=== PATIENT | male | born 2000 | race African-American/Black ===

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

== ENCOUNTER 2021-03-12 20:40 | Emergency (ER) | payer MEDICAID, OTHER ==
[2021-03-12] MEDS ORDERED: Albuterol/Ipratropium 3.0-0.5 MG/3 ML Neb Soln NEB ONE ×2 (20:55→21:10)
[2021-03-12] MEDS ORDERED: methylPREDNISolone Sodium Succinate 125 MG/2 ML SDV IM ONE (20:55)
[2021-03-12] MEDS ORDERED: Take Home: Doxycycline 100 MG Tab, 4 Tab Pack PO ONE (21:37)
--- NOTE | 2021-03-12 21:53 | EDM.PDOC ---
ED HPI GENERAL MEDICAL PROBLEM - General Stated Complaint: HARD TIME BREATHING Time Seen by Provider: 03/12/21 20:40 Source of Information: Reports: Patient, RN, RN Notes Reviewed History Limitations: Reports: No Limitations - History of Present Illness INITIAL COMMENTS - FREE TEXT/NARRATIVE: Pt. presents to ER with complaints of cough, chest tightness, and wheezing for the past 2 days. Pt. has a history of asthma. He states that he started feeling poorly a couple of days ago. He states that his cough is productive of yellowish sputum. He has an albuterol inhaler and duoneb nebulizer which he used twice today. He denies any fever or chills. Denies any chest pain. Pt. states that he was hospitalized once for asthma as a child. He states that his asthma has improved since he has gotten older. He denies ever having to be intubated. Pt. is a smoker. He is also on singulair 10mg daily. He is not on ICS or LABA. Onset Date: 03/10/21 Location: Reports: Chest Associated Symptoms: Reports: Cough, cough w sputum, Shortness of Breath - Related Data Allergies Allergy/AdvReac Type Severity Reaction Status Date / Time seasonal Allergy Difficulty Uncoded 01/18/17 16:28 Breathing Home Meds: Home Meds Albuterol Sulfate [Proair Hfa] 8.5 gm IH 01/18/17 [History] Albuterol [IJP: Albuterol] 2.5 mg .XX 01/18/17 [History] Albuterol/Ipratropium [DuoNeb 3.0-0.5 MG/3 ML] 3 ml NEB Q4HRRT 01/18/17 [History] Cetirizine [ZyrTEC] 10 mg PO DAILY 01/18/17 [History] Cholecalciferol (Vitamin D3) [Vitamin D3] 1,000 units PO 01/18/17 [History] Escitalopram [Lexapro] 20 mg PO DAILY 01/18/17 [History] Fluticasone Propionate [24 Hour Allergy Relief] 15.8 ml NS 01/18/17 [History] Melatonin 3 mg PO BEDTIME 01/18/17 [History] Methylphenidate HCl [Concerta] 36 mg PO 01/18/17 [History] Montelukast [Singulair] 10 mg PO BEDTIME 01/18/17 [History] Past Medical History Respiratory History: Reports: Asthma ED ROS GENERAL - Review of Systems Review Of Systems: See Below Constitutional: Denies: Fever, Chills, Malaise, Weakness, Fatigue, Diaphoresis HEENT: Reports: No Symptoms Respiratory: Reports: Shortness of Breath, Wheezing, Cough Cardiovascular: Reports: No Symptoms Endocrine: Reports: No Symptoms GI/Abdominal: Reports: No Symptoms : Reports: No Symptoms Musculoskeletal: Reports: No Symptoms Skin: Reports: No Symptoms Neurological: Reports: No Symptoms Psychiatric: Reports: No Symptoms Hematologic/Lymphatic: Reports: No Symptoms Immunologic: Reports: No Symptoms ED EXAM, GENERAL - Physical Exam Exam: See Below Exam Limited By: No Limitations General Appearance: Alert, WD/WN, No Apparent Distress Nose: Normal Inspection, Normal Mucosa, No Blood Throat/Mouth: Normal Inspection, Normal Lips, Normal Teeth, Normal Oropharynx, No Airway Compromise Head: Atraumatic, Normocephalic Neck: Normal Inspection, Supple, Non-Tender, Full Range of Motion Respiratory/Chest: No Respiratory Distress, No Accessory Muscle Use, Chest Non- Tender, Decreased Breath Sounds, Wheezing, Other Cardiovascular: Normal Peripheral Pulses, Regular Rate, Rhythm, No Edema, No JVD, No Murmur, No Rub Peripheral Pulses: 4+: Radial (L) GI/Abdominal: Soft, Non-Tender, No Distention, No Mass (Male) Exam: Deferred Rectal (Males) Exam: Deferred Back Exam: Normal Inspection, Full Range of Motion Extremities: Normal Inspection, Normal Range of Motion, Non-Tender, No Pedal Edema, Normal Capillary Refill Neurological: Alert, Oriented, CN II-XII Intact, Normal Cognition, Normal Reflexes, No Motor/Sensory Deficits Psychiatric: Normal Affect, Normal Mood Skin Exam: Warm, Dry, Intact, Normal Color, No Rash Lymphatic: No Adenopathy Course - Orders/Labs/Meds Orders: Active Orders 24 hr Category Date Time Status RT Aerosol Therapy [RC] ASDIRECTED Care 03/12/21 20:55 Active RT Aerosol Therapy [RC] ASDIRECTED Care 03/12/21 21:11 Active Chest 1V Frontal [CR] Stat Exams 03/12/21 20:57 Taken Meds: Medications Discontinued Medications Generic Name Dose Route Start Last Admin Trade Name Freq PRN Reason Stop Dose Admin Albuterol/Ipratropium 3 ml 03/12/21 20:55 Albuterol/Ipratropium 3.0-0.5 Mg/3 Ml Neb Soln NEB 03/12/21 20:56 ONETIME ONE Albuterol/Ipratropium 3 ml 03/12/21 21:10 Albuterol/Ipratropium 3.0-0.5 Mg/3 Ml Neb Soln NEB 03/12/21 21:11 ONETIME ONE Doxycycline Monohydrate 1 packet 03/12/21 21:37 Take Home: Doxycycline 100 Mg Tab, 4 Tab Pack PO 03/12/21 21:38 ONETIME ONE Methylprednisolone Sodium Succinate 125 mg 03/12/21 20:55 Methylprednisolone Sodium Succinate 125 Mg/2 Ml Sdv IM 03/12/21 20:56 ONETIME ONE - Radiology Interpretation Free Text/Narrative:: Chest x-ray showed hyperinflation, hilar haziness. No obvious infiltrate noted. - Re-Assessments/Exams Free Text/Narrative Re-Assessment/Exam: 03/12/21 22:00 Pt was given a duoneb breathing treatment on arrival to ER. He was wheezing, in mild respiratory distress after ambulation. Pre duoneb peak flow was 350, or 75% predicted. After neb, peak flow increased to 450, or 96% predicted. Lung sounds improved significantly. Pt. was given a second duoneb. Peak flow increased to 500, or 107% predicted. Pt. reported feeling much improved at time of discharge. Departure - Departure Time of Disposition: 22:04 Disposition: Home, Self-Care 01 Clinical Impression: Acute asthma exacerbation Qualifiers: Asthma severity: moderate persistent Qualified Code(s): J45.41 - Moderate persistent asthma with (acute) exacerbation - Discharge Information Instructions: Asthma, Adult, Doxycycline tablets or capsules, Prednisone tablets Referrals: PCP,Not In Area [Primary Care Provider] - Additional Instructions: Prednisone 20mg 2 tabs daily for 7 days. It will take at least a day for the shot and this medication to start working for you. Doxycycline 100mg 1 tab twice daily for 10 days Continue to use albuterol inhaler or nebulizer every 4-6 hours for cough/wheezing Return to ER if you have worsening shortness of breath that is not helped with albuterol. Try to stop smoking, especially when you are ill like this. - Problem List Review Problem List Initiated/Reviewed/Updated: Yes - My Orders Last 24 Hours: My Active Orders 03/12/21 20:55 RT Aerosol Therapy [RC] ASDIRECTED 03/12/21 20:57 Chest 1V Frontal [CR] Stat 03/12/21 21:11 RT Aerosol Therapy [RC] ASDIRECTED - Assessment/Plan Last 24 Hours: My Active Orders 03/12/21 20:55 RT Aerosol Therapy [RC] ASDIRECTED 03/12/21 20:57 Chest 1V Frontal [CR] Stat 03/12/21 21:11 RT Aerosol Therapy [RC] ASDIRECTED Plan: Prednisone 20mg 2 tabs daily for 7 days. It will take at least a day for the shot and this medication to start working for you. Doxycycline 100mg 1 tab twice daily for 10 days Continue to use albuterol inhaler or nebulizer every 4-6 hours for cough/wheezing Return to ER if you have worsening shortness of breath that is not helped with albuterol. Try to stop smoking, especially when you are ill like this.
[2021-03-12 23:04] VITALS: BP 119/65
[2021-03-12 23:28] VITALS: PULSE 110
--- NOTE | 2021-03-13 08:13 | CR ---
[id number] RAD/RAD Chest PA or AP 1V EXAM: FRONTAL CHEST INDICATION: Cough and chest congestion. COMPARISON: None. DISCUSSION: The heart and lungs are normal in appearance. IMPRESSION: 1. Negative exam. Robel Musa MD 03/13/21 0812 Thank you for allowing us to participate in the care of your patient.
== END 2021-03-12 21:55 | disposition home or self-care (01) ==
LOC: VM.ED 20:40
DX: J45.41 Moderate persistent asthma with (acute) exacerbation (principal); Z91.09 Other allergy status, other than to drugs and biological substances
CPT/HCPCS: 71045; 94640; 96372; 99284; 99285-25; A9270-GY; J2930; J7620-GY